=== PATIENT | female | born 1955 | race Caucasian/White ===

== ENCOUNTER 2022-04-19 16:31 | Inpatient (IN) | payer MEDICARE ==
[2022-04-19 17:16] LABS: #Monocytes 0.4 10x3/uL (0.0-1.1); #Neutrophils 4.6 10x3/uL (1.5-8.4); %Basophils 0.2 % (0.0-2.0); %Eosinophils 0.2 % (0.0-6.0); %Monocytes 7.4 % (0.0-10.0); %Neutrophils 82.7 % (40.0-75.0); Hemoglobin 10.8 g/dL (12.0-15.5); Mean Corpuscular HGB CONC 34.8 g/dL (32.0-36.0); Mean Corpuscular Hemoglobin 28.7 pg (27.0-33.0); Mean Corpuscular Volume 82.4 fl (81.6-98.3); Mean Platelet Volume 10.7 fl (7.4-10.4); Platelet Count 146 10x3/uL (150-450); Red Blood Cell (RBC) Count 3.76 10x6/uL (3.90-5.03); White Blood Cell (WBC) Count 5.5 10x3/uL (3.5-10.5)
[2022-04-19 17:52] LABS: SARS-CoV-2 NAA Rapid Test Not Detected (NotDetected)
[2022-04-19] MEDS ORDERED: Cefepime 2 GM VIAL ONE (18:12)
[2022-04-19] MEDS ORDERED: Vancomycin 1 GM VIAL ONE (18:12)
[2022-04-19 18:14] LABS: Bilirubin Neg (Negative); Blood, Urine 10 (Negative); Clarity Clear (Clear); Glucose, Urine (Dipstick) Normal (Negative); Ketone, Urine 15 mg/dL (Negative); Leukocyte Negative (Negative); Nitrite Negative (Negative); Protein, Urine (Dipstick) Negative (Neg-Trace); Specific Gravity, Urine 1.005 (1.005-1.030); Urobilinogen Normal mg/dL (Less than 2); pH, Urine 6.5 (5.0-9.0)
[2022-04-19 18:24] LABS: Amphetamine Not Detected (NotDetected); Barbiturates Screen Not Detected (NotDetected); Benzodiazepine Screen Not Detected (NotDetected); Cocaine Metabolite Screen Not Detected (NotDetected); Methadone Not Detected (NotDetected); Methamphetamine Not Detected (NotDetected); Opiate Screen Not Detected (NotDetected); Oxycodone Screen Not Detected (NotDetected); Phencyclidine (PCP) Not Detected (NotDetected); THC/Cannabinoid Screen Not Detected (NotDetected); Tricyclic Screen Detected (NotDetected)
[2022-04-19 18:28] LABS: Bacteria/HPF Rare-Few HPF (None Seen); RBC/HPF 0-3 HPF (0-3); Squamous Epithelial None Seen HPF (0-3); Transitional Epithelial 0-3 HPF (None Seen); WBC/HPF None Seen HPF (0-3)
[2022-04-19 19:28] LABS: Alcohol Less than 10 mg/dL (Less than 10); Salicylate Less than 8.0 mg/dL (15.0-30.0)
[2022-04-19 19:29] LABS: ALT (SGPT) 49 U/L (8-55); AST (SGOT) 70 U/L (5-34); Alkaline Phosphatase 50 U/L (40-110); Anion Gap 13 mmol/L (10-20); BUN (Urea Nitrogen) 11 mg/dL (9.8-20.1); Bilirubin, Total 1.1 mg/dL (0.2-1.2); Calc. Creatinine Clearance 0 mL/min (70-130); Calcium 7.6 mg/dL (7.8-10.44); Carbon Dioxide 18 mmol/L (23-31); Chloride 97 mmol/L (98-107); Estimated GFR 95; Globulin 2.3 g/dL (2.4-3.5); Glucose 108 mg/dL (80-115); Potassium 3.4 mmol/L (3.5-5.1); Protein, Total 5.3 g/dL (5.8-8.1); Sodium 125 mmol/L (136-145)
[2022-04-19] MEDS ORDERED: Senokot S 8.6-50 MG TAB PO PRN (20:22)
[2022-04-19] MEDS ORDERED: Guaifenesin DM 100-10/5 ML UDCUP PO PRN (20:22)
[2022-04-19] MEDS ORDERED: Ondansetron PF 4 MG/2 ML Vial IVP PRN (20:22)
[2022-04-19] MEDS ORDERED: Calcium Carbonate 500 MG ChewTAB PO PRN (20:22)
[2022-04-19] MEDS ORDERED: Amitriptyline HCl 25 MG TAB PO PRN (20:26)
[2022-04-19] MEDS ORDERED: Potassium Chloride 20 MEQ TAB PO SCH (21:00)
[2022-04-19] MEDS ORDERED: NS 0.9% w/ 20 MEQ KCL 1,000 ML/1,000 ML BAG IV SCH (21:00)
[2022-04-19] MEDS: Atorvastatin Calcium 20 MG TAB PO SCH (21:18)
[2022-04-19] MEDS ORDERED: Potassium Chloride 20 MEQ TAB ONE (21:20)
[2022-04-19] MEDS ORDERED: NS 0.9% w/ 20 MEQ KCL 1,000 ML ONE ×2 (21:24→21:25)
[2022-04-20 03:49] LABS: #Monocytes 0.3 10x3/uL (0.0-1.1); #Neutrophils 4.8 10x3/uL (1.5-8.4); %Basophils 0.7 % (0.0-2.0); %Lymphocytes 8.5 % (18.0-47.0); %Monocytes 4.8 % (0.0-10.0); %Neutrophils 85.5 % (40.0-75.0); Hemoglobin 11.4 g/dL (12.0-15.5); Mean Corpuscular HGB CONC 34.5 g/dL (32.0-36.0); Mean Corpuscular Hemoglobin 28.9 pg (27.0-33.0); Mean Corpuscular Volume 83.8 fl (81.6-98.3); Mean Platelet Volume 10.9 fl (7.4-10.4); Platelet Count 137 10x3/uL (150-450); RBC Distribution Width 14.5 % (11.5-14.5); Red Blood Cell (RBC) Count 3.94 10x6/uL (3.90-5.03); White Blood Cell (WBC) Count 5.6 10x3/uL (3.5-10.5)
[2022-04-20 03:58] LABS: Anion Gap 11 mmol/L (10-20); BUN (Urea Nitrogen) 7 mg/dL (9.8-20.1); CK (CPK) 222 U/L (29-168); Calc. Creatinine Clearance 0 mL/min (70-130); Calcium 8.1 mg/dL (7.8-10.44); Carbon Dioxide 20 mmol/L (23-31); Chloride 104 mmol/L (98-107); Estimated GFR 96; Glucose 114 mg/dL (80-115); Magnesium 1.7 mg/dL (1.6-2.6); Phosphorus 1.7 mg/dL (2.3-4.7); Potassium 4.4 mmol/L (3.5-5.1); Sodium 131 mmol/L (136-145)
[2022-04-20] MEDS ORDERED: Haloperidol Lactate 5 MG/ML VIAL ONE (04:31)
[2022-04-20] MEDS: Levothyroxine Sodium 100 MCG TAB PO SCH (06:03)
[2022-04-20] MEDS ORDERED: Electrolyte Replacement Protocol 1 EACH FS SCH (07:45)
[2022-04-20] MEDS ORDERED: Magnesium 2 GM/50 ML(in water) 2 GM in Premix Bag 1 BAG IVPB SCH (08:00)
[2022-04-20] MEDS ORDERED: Magnesium 2 GM/50 ML BAG (IN WATER) ONE (09:03)
[2022-04-20] MEDS: PHOS-NAK 1 PKT PACK PO SCH ×2 (09:29→12:23)
[2022-04-20] MEDS ORDERED: Acetaminophen 325 MG TAB ONE (10:12)
[2022-04-20] MEDS: Acetaminophen 325 MG TAB PO PRN ×2 (10:59→21:43)
[2022-04-20] MEDS: Atorvastatin Calcium 20 MG TAB PO SCH (21:07)
[2022-04-20] MEDS: Famotidine 20 MG TAB PO SCH (21:07)
[2022-04-20] MEDS ORDERED: Albumin 25% 25 GM/100 ML BOT IVPB SCH (23:59)
[2022-04-20] MEDS ORDERED: Sodium Chloride 0.9% 1,000 ML IV SCH (23:59)
[2022-04-21] MEDS ORDERED: Adenosine 6 MG/2 ML VIAL ONE (00:17)
[2022-04-21] MEDS ORDERED: Metoprolol Tartrate 5 MG/5 ML VIAL ONE (00:29)
[2022-04-21] MEDS ORDERED: Diltiazem 125 MG in Sodium Chloride 0.9% 100 ML IVPB SCH (00:45)
[2022-04-21] MEDS ORDERED: Sodium Chloride 0.9% 1,000 ML IV SCH (01:00)
[2022-04-21] MEDS: cefTRIAXone\\ROCEPHIN 1 GM in Sodium Chloride 0.9% 100 ML IVPB SCH ×2 (01:13→22:41)
[2022-04-21] MEDS: Vancomycin HCl 750 MG in Sodium Chloride 0.9% 250 ML 250 ML IVPB SCH ×3 (01:13→23:15)
[2022-04-21 02:57] LABS: #Monocytes 0.3 10x3/uL (0.0-1.1); #Neutrophils 5.2 10x3/uL (1.5-8.4); %Basophils 0.2 % (0.0-2.0); %Eosinophils 0.2 % (0.0-6.0); %Lymphocytes 8.9 % (18.0-47.0); %Monocytes 4.9 % (0.0-10.0); %Neutrophils 85.1 % (40.0-75.0); Hemoglobin 10.9 g/dL (12.0-15.5); Mean Corpuscular HGB CONC 34.9 g/dL (32.0-36.0); Mean Platelet Volume 11.4 fl (7.4-10.4); Platelet Count 139 10x3/uL (150-450); RBC Distribution Width 14.5 % (11.5-14.5); Red Blood Cell (RBC) Count 3.76 10x6/uL (3.90-5.03); White Blood Cell (WBC) Count 6.1 10x3/uL (3.5-10.5)
[2022-04-21 03:10] LABS: ALT (SGPT) 49 U/L (8-55); AST (SGOT) 61 U/L (5-34); Albumin 2.7 g/dL (3.4-4.8); Alkaline Phosphatase 52 U/L (40-110); Anion Gap 10 mmol/L (10-20); BUN (Urea Nitrogen) 8 mg/dL (9.8-20.1); Bilirubin, Total 1.1 mg/dL (0.2-1.2); CK (CPK) 223 U/L (29-168); Calc. Creatinine Clearance 69 mL/min (70-130); Calcium 7.6 mg/dL (7.8-10.44); Carbon Dioxide 23 mmol/L (23-31); Chloride 98 mmol/L (98-107); Estimated GFR 98; Globulin 2.3 g/dL (2.4-3.5); Glucose 107 mg/dL (80-115); Magnesium 1.9 mg/dL (1.6-2.6); Phosphorus 2.5 mg/dL (2.3-4.7); Potassium 3.6 mmol/L (3.5-5.1); Sodium 127 mmol/L (136-145)
[2022-04-21] MEDS ORDERED: Magnesium 2 GM/50 ML(in water) 2 GM in Premix Bag 1 BAG IVPB SCH (04:00)
[2022-04-21] MEDS ORDERED: Adenosine 6 MG/2 ML VIAL IVP SCH (04:30)
[2022-04-21] MEDS ORDERED: Metoprolol Tartrate 5 MG/5 ML VIAL IVP SCH (04:30)
[2022-04-21] MEDS: Levothyroxine Sodium 100 MCG TAB PO SCH (05:09)
[2022-04-21] MEDS ORDERED: Potassium Chloride 20 MEQ TAB PO SCH (08:00)
[2022-04-21] MEDS: Famotidine 20 MG TAB PO SCH ×2 (08:14→20:21)
[2022-04-21 09:03] VITALS: BMI 21.9
[2022-04-21] MEDS: ALPRAZolam 0.25 MG TAB PO PRN ×3 (09:08→20:21)
[2022-04-21 16:45] LABS: Potassium, Urine 31.1 mmol/L
[2022-04-21] MEDS: Acetaminophen 325 MG TAB PO PRN (20:21)
[2022-04-21] MEDS: Atorvastatin Calcium 20 MG TAB PO SCH (20:21)
[2022-04-22 04:26] LABS: Mean Corpuscular HGB CONC 34.9 g/dL (32.0-36.0); Mean Corpuscular Hemoglobin 29.2 pg (27.0-33.0); Mean Corpuscular Volume 83.6 fl (81.6-98.3); Mean Platelet Volume 11.1 fl (7.4-10.4); Platelet Count 139 10x3/uL (150-450); RBC Distribution Width 14.7 % (11.5-14.5); Red Blood Cell (RBC) Count 3.77 10x6/uL (3.90-5.03); White Blood Cell (WBC) Count 8.8 10x3/uL (3.5-10.5)
[2022-04-22 04:27] LABS: #Monocytes 0.3 10x3/uL (0.0-1.1); #Neutrophils 7.8 10x3/uL (1.5-8.4); %Basophils 0.2 % (0.0-2.0); %Eosinophils 0.1 % (0.0-6.0); %Lymphocytes 8.3 % (18.0-47.0); %Monocytes 3.8 % (0.0-10.0)
[2022-04-22 04:36] LABS: Anion Gap 12 mmol/L (10-20); BUN (Urea Nitrogen) 10 mg/dL (9.8-20.1); BUN/Creatinine Ratio 16.39; Calc. Creatinine Clearance 82 mL/min (70-130); Calcium 7.9 mg/dL (7.8-10.44); Carbon Dioxide 24 mmol/L (23-31); Chloride 99 mmol/L (98-107); Estimated GFR 98; Glucose 116 mg/dL (80-115); Magnesium 2.1 mg/dL (1.6-2.6); Phosphorus 1.8 mg/dL (2.3-4.7); Potassium 4.9 mmol/L (3.5-5.1); Sodium 130 mmol/L (136-145)
[2022-04-22 04:52] LABS: Free T4 (Free Thyroxine) 1.29 ng/dL (0.70-1.48)
[2022-04-22] MEDS: Levothyroxine Sodium 100 MCG TAB PO SCH (05:39)
[2022-04-22] MEDS: ALPRAZolam 0.25 MG TAB PO PRN (05:39)
[2022-04-22] MEDS: PHOS-NAK 1 PKT PACK PO SCH ×2 (05:40→09:37)
[2022-04-22] MEDS: Famotidine 20 MG TAB PO SCH (09:36)
[2022-04-22] MEDS ORDERED: Oxybutynin 5 MG TAB PO PRN (11:27)
[2022-04-22 11:37] LABS: Vancomycin, Trough 6.3 ug/mL
[2022-04-22] MEDS ORDERED: Metoprolol Tartrate 5 MG/5 ML VIAL IVP PRN (11:40)
[2022-04-22] MEDS ORDERED: Loratadine 10 MG TAB PO PRN (11:59)
[2022-04-22] MEDS ORDERED: Metoprolol Tartrate 5 MG/5 ML VIAL IVP SCH (12:00)
[2022-04-22] MEDS ORDERED: Vancomycin HCl 1 GM in Sodium Chloride 0.9% 250 ML 250 ML IVPB SCH (12:00)
[2022-04-22] MEDS ORDERED: Ipratropium/Albuterol 3 ML NEB NEB SCH (13:00)
[2022-04-22] MEDS: methylPREDNISolone Sod Succ 40 MG VIAL IVP SCH ×2 (14:32→22:04)
[2022-04-22] MEDS ORDERED: Ipratropium Bromide 2.5 ml Neb ONE (14:40)
[2022-04-22] MEDS: Ipratropium Bromide 2.5 ml Neb NEB SCH (19:20)
[2022-04-22] MEDS: busPIRone HCl 15 MG TAB PO SCH (21:59)
[2022-04-22] MEDS: Atorvastatin Calcium 20 MG TAB PO SCH (22:04)
[2022-04-22] MEDS: cefTRIAXone\\ROCEPHIN 1 GM in Sodium Chloride 0.9% 100 ML IVPB SCH (22:08)
[2022-04-23] MEDS: Vancomycin HCl 1 GM in Sodium Chloride 0.9% 250 ML 250 ML IVPB SCH ×2 (00:27→12:00)
[2022-04-23] MEDS: Ipratropium Bromide 2.5 ml Neb NEB SCH ×4 (02:05→20:15)
[2022-04-23 04:49] LABS: Phosphorus 2.6 mg/dL (2.3-4.7)
[2022-04-23] MEDS: Levothyroxine Sodium 100 MCG TAB PO SCH (05:22)
[2022-04-23] MEDS: methylPREDNISolone Sod Succ 40 MG VIAL IVP SCH ×2 (05:22→14:08)
[2022-04-23 05:43] LABS: Anion Gap 11 mmol/L (10-20); BUN (Urea Nitrogen) 16 mg/dL (9.8-20.1); Calc. Creatinine Clearance 78 mL/min (70-130); Calcium 7.5 mg/dL (7.8-10.44); Carbon Dioxide 24 mmol/L (23-31); Chloride 100 mmol/L (98-107); Estimated GFR 95; Glucose 153 mg/dL (80-115); Potassium 4.3 mmol/L (3.5-5.1); Sodium 131 mmol/L (136-145)
[2022-04-23] MEDS: FLUoxetine HCl 20 MG CAP PO SCH (09:28)
[2022-04-23] MEDS: busPIRone HCl 15 MG TAB PO SCH ×2 (09:31→20:27)
[2022-04-23] MEDS: Atorvastatin Calcium 20 MG TAB PO SCH (20:20)
[2022-04-23] MEDS: Mometasone 200 MCG/PUFF (1 INHALER) INH SCH (20:25)
[2022-04-24] MEDS: Ipratropium Bromide 2.5 ml Neb NEB SCH ×3 (01:15→13:06)
[2022-04-24 04:52] LABS: Anion Gap 14 mmol/L (10-20); BUN (Urea Nitrogen) 25 mg/dL (9.8-20.1); Calc. Creatinine Clearance 71 mL/min (70-130); Calcium 8.3 mg/dL (7.8-10.44); Carbon Dioxide 22 mmol/L (23-31); Chloride 99 mmol/L (98-107); Estimated GFR 89; Glucose 149 mg/dL (80-115); Potassium 4.9 mmol/L (3.5-5.1); Sodium 130 mmol/L (136-145)
[2022-04-24] MEDS: Levothyroxine Sodium 100 MCG TAB PO SCH (05:20)
[2022-04-24 05:34] VITALS: TEMP 98.9
[2022-04-24] MEDS: Mometasone 200 MCG/PUFF (1 INHALER) INH SCH (07:17)
[2022-04-24] MEDS ORDERED: predniSONE 20 MG TAB PO SCH (08:00)
[2022-04-24] MEDS: FLUoxetine HCl 20 MG CAP PO SCH (08:28)
[2022-04-24] MEDS: busPIRone HCl 15 MG TAB PO SCH (08:28)
[2022-04-24 15:04] VITALS: BP 117/70
== END 2022-04-24 19:05 | DRG 872 ==
LOC: CSHERS 16:31 → INTOOBSV 19:20 → CSHERHOLD 19:20 → CSHTELE 04-20 14:47 → OBSVTOIN 04-21 00:43 → CSHIMCU 04-21 00:51
PROVIDERS: ADMIT Student in an Organized Health Care Education/Training Program; ATTEND Internal Medicine
PROC: 3E03329 Introduction of Other Anti-infective into Peripheral Vein, Percutaneous Approach (ICD-10-PCS; principal; 2022-04-21)
PROC: 30233J1 Transfusion of Nonautologous Serum Albumin into Peripheral Vein, Percutaneous Approach (ICD-10-PCS; 2022-04-21)
DX: A41.89 Other specified sepsis (principal); R64 Cachexia; J44.1 Chronic obstructive pulmonary disease with (acute) exacerbation; E22.2 Syndrome of inappropriate secretion of antidiuretic hormone; E46 Unspecified protein-calorie malnutrition; E87.6 Hypokalemia; Z20.822 Contact with and (suspected) exposure to COVID-19; I48.0 Paroxysmal atrial fibrillation; D64.9 Anemia, unspecified; E03.9 Hypothyroidism, unspecified; E78.5 Hyperlipidemia, unspecified; B34.9 Viral infection, unspecified; I10 Essential (primary) hypertension; F32.A Depression, unspecified; M81.0 Age-related osteoporosis without current pathological fracture; N32.81 Overactive bladder; Z60.2 Problems related to living alone; M19.90 Unspecified osteoarthritis, unspecified site; G47.00 Insomnia, unspecified; E86.0 Dehydration; F41.0 Panic disorder [episodic paroxysmal anxiety]; Z96.652 Presence of left artificial knee joint; Z87.820 Personal history of traumatic brain injury; Z98.890 Other specified postprocedural states; Z88.5 Allergy status to narcotic agent; Z87.891 Personal history of nicotine dependence; Z79.899 Other long term (current) drug therapy; Z90.89 Acquired absence of other organs; Z68.23 Body mass index [BMI] 23.0-23.9, adult
CPT/HCPCS: 36415; 36416; 51701; 70450; 70551; 71045; 80048; 80053; 80069; 80202; 80306; 80307; 81003; 81015; 82436; 82533; 82550; 83605; 83735; 83880; 83930; 83935; 84100; 84133; 84300; 84439; 84443; 84481; 84484; 84550; 85025; 87040; 87081; 87430; 93005; 93010; 93306; 93880; 94640; 94664; 94760; 96361; 96365; 96372; 96375; G0378; J0153; J0692; J0696; J1630; J1650; J2597; J2920; J3370; J3475; J3480; J3490; J7050; J7512; P9047

== ENCOUNTER 2023-04-15 12:10 | Emergency (ER) | payer MEDICARE ==
[2023-04-15 13:18] LABS: #Eosinphils 0.1 10x3/uL (0.0-0.5); #Monocytes 0.5 10x3/uL (0.0-1.1); %Basophils 0.3 % (0.0-2.0); %Eosinophils 1.4 % (0.0-6.0); %Lymphocytes 19.1 % (18.0-47.0); %Monocytes 8.9 % (0.0-10.0); Hematocrit 41.3 % (34.9-44.5); Hemoglobin 13.5 g/dL (12.0-15.5); Mean Corpuscular HGB CONC 32.7 g/dL (32.0-36.0); Mean Corpuscular Hemoglobin 28.8 pg (27.0-33.0); Mean Corpuscular Volume 88.2 fl (81.6-98.3); Mean Platelet Volume 10.2 fl (7.4-10.4); Platelet Count 302 10x3/uL (150-450); RBC Distribution Width 13.8 % (11.5-14.5); Red Blood Cell (RBC) Count 4.68 10x6/uL (3.90-5.03); White Blood Cell (WBC) Count 5.8 10x3/uL (3.5-10.5)
[2023-04-15 13:26] LABS: ALT (SGPT) 17 U/L (8-55); AST (SGOT) 21 U/L (5-34); Alkaline Phosphatase 66 U/L (40-110); Anion Gap 10 mmol/L (10-20); BUN (Urea Nitrogen) 11 mg/dL (9.8-20.1); Bilirubin, Total 0.6 mg/dL (0.2-1.2); Calc. Creatinine Clearance 0 mL/min (70-130); Calcium 9.7 mg/dL (7.8-10.44); Carbon Dioxide 26 mmol/L (23-31); Chloride 103 mmol/L (98-107); Estimated GFR 85; Globulin 2.9 g/dL (2.4-3.5); Glucose 100 mg/dL (80-115); Lipase 20 U/L (8-78); Potassium 4.3 mmol/L (3.5-5.1); Protein, Total 6.9 g/dL (5.8-8.1); Sodium 135 mmol/L (136-145)
[2023-04-15 13:32] LABS: Bilirubin Neg (Negative); Blood, Urine Negative (Negative); Clarity Clear (Clear); Glucose, Urine (Dipstick) Normal (Negative); Ketone, Urine Negative (Negative); Leukocyte Negative (Negative); Nitrite Negative (Negative); Protein, Urine (Dipstick) Negative (Neg-Trace); Urobilinogen Normal mg/dL (Less than 2)
[2023-04-15 14:20] LABS: Bacteria/HPF None Seen HPF (None Seen); CAUTI Indications for Culture Dysuria,urgency,freq; RBC/HPF None Seen HPF (0-3); Squamous Epithelial 0-3 HPF (0-3); WBC/HPF None Seen HPF (0-3)
[2023-04-15 14:22] LABS: Urine Culture Reflex No No
== END 2023-04-15 14:56 | disposition home or self-care (01) ==
LOC: CSHERS 12:10
DX: R11.2 Nausea with vomiting, unspecified (principal); I10 Essential (primary) hypertension
CPT/HCPCS: 76705; 80053; 81001; 83690; 85025